=== PATIENT | male | born 1945 | race Caucasian/White ===

== ENCOUNTER 2017-07-24 09:51 | Inpatient (IN) | payer MEDICARE, BC, SELFPAY ==
[2017-07-24] VITALS (14 sets, daily range): BP systolic 100–118; BP diastolic 46–78; PULSE 66–94; RESP 14–28; TEMP 35.7–36.7; O2SAT 83–96; BMI 46.0; BMI 45.7
--- NOTE | 2017-07-24 10:08 | RAD_ITS ---
STUDY: X-RAY CHEST REASON FOR EXAM: Male, 72 years old. Chest pain. TECHNIQUE: Single AP portable view of the chest. COMPARISON: None. FINDINGS: EKG electrodes are seen. Surgical clips are seen in the left upper lobe most likely secondary to prior pulmonary surgery. There is volume loss in the left hemithorax with increased interstitial markings with areas of confluence in the left hemithorax. This may represent chronic changes such as post radiation fibrosis if the patient received prior radiation therapy. Clinical correlation is recommended. There is no demonstrated pleural abnormality. Sternal cerclage wires and vascular clips are present from a prior sternotomy and coronary artery bypass graft procedure (CABG). Normal mediastinum and lazaro. Normal visualized pulmonary arteries. Normal visualized aortic arch and descending thoracic aorta. Normal visualized thoracic spine. Normal visualized ribs, clavicles, and shoulders. There is no demonstrated abnormality of the visualized soft tissue structures of the upper abdomen. RAD/Chest 1 View (Portable) IMPRESSION: Volume loss of the left hemithorax with increased markings most likely chronic in nature. Clinical correlation is recommended. Electronically Signed: Brian Baker MD at 10:48 EST Tel [phone], Service support ,
--- NOTE | 2017-07-24 10:08 | EKG12_ITS ---
Test Reason : SOB Blood Pressure : / mmHG Vent. Rate : 064 BPM Atrial Rate : 064 BPM P-R Int : 146 ms QRS Dur : 106 ms QT Int : 442 ms P-R-T Axes : 115 089 -22 degrees QTc Int : 455 ms Normal sinus rhythm ST & T wave abnormality, consider anterior ischemia Abnormal ECG Confirmed by JOSIAS PARKER, KOLBY ([id number]), newspaper editor managing LOWELL ROWLAND ([id number]) on 07/30/2017 3:30:28 PM Referred By: MITESH/THAD Confirmed By:KOLBY FERRARA MD
--- NOTE | 2017-07-24 10:11 | ED.VISSUMM ---
- ER Visit Summary Date of Service: 07/24/17 Chief Complaint: URI and shortness of breath History of Present Illness: The patient is a 72 M history of pulmonary fibrosis and diastolic heart failure along with a prior triple bypass and mechanical heart valve for which he is anticoagulated on Coumadin. URI symptoms for several days. Today was his primary care physician Dr. Isaac and in the office they noticed he was hypoxic with a pulse ox of 83% on room air. Patient is not on home O2. He states he has had a cough with yellow sputum. Denies any hemoptysis. Denies any chest pain. No history of DVT or PE no risk factors. He denies any worse swelling he does have chronic swelling in his lower extremities. He denies any chest pain. He denies any fever. Physical Examination: Well-appearing older male. Vital signs are stable except his pulse ox is 83% on room air consistent with hypoxia. On oxygen is in the mid 90s. He is in no distress. H EENT exam unremarkable. Neck nontender no JVD. Lungs expiratory wheezing throughout both sides. No rales or rhonchi. Equal and symmetrical. Heart regular rate and rhythm I do not appreciate any murmur at this time. Abdomen soft nontender. Extremities moves all 4. Neurovascularly intact. Trace edema both lower extremities. Calves nontender. No cords. Back exam normal. Neurologically is awake and alert with no focal motor deficits. Test Results: Chest x-ray shows volume loss on the left but no obvious infiltrate. He does have cardiomegaly which is chronic. EKG sinus rhythm rate is 64 with inverted T waves V1 through V4. White count of 10. H&H of 13 and 41. Chemistries unremarkable. Creatinine 1.59. His INR is 2.1 he is on Coumadin. Troponin normal. Emergency Department Course and Treatment: Patient will receive IV Solu-Medrol and aerosol treatments. Along with a workup and chest x-ray. Treatment Plan: Patient was treated with aerosols and Solu-Medrol IV. We took him off oxygen after all his treatments and being in the ER for 2 hours and his pulse ox quickly drops to 87 before he is even attempted to walk. He will be admitted. Disposition: Admission Impression: Acute URI Acute hypoxia with bronchospasm and wheezing. History of pulmonary fibrosis History of CAD with a triple bypass and mechanical heart valve anticoagulated on Coumadin. This note was generated with [employer] dictation software. It may contain incorrect words, spelling, and punctuation that were not noted in review of the chart prior to signing ED Disposition - Plan for ED Patient: Chief Complaint: Shortness of Breath Referrals: Warren Avalos MD [Primary Care Provider] -
--- NOTE | 2017-07-24 10:18 | ED.RN ---
NO OLD EKG
[2017-07-24] MEDS: MethylPREDNISolone 125 MG/2 ML Vial IV (10:32)
[2017-07-24 10:34] LABS: Absolute Lymphocyte Count 1.52 X10^3/ul (0.83-4.51); Absolute Neutrophil Count 7.6 X10^3/uL (2.0-7.7); Basophil# 0.02 X10^3/uL; Basophil% 0.2 % (0-1); Hematocrit 41.9 % (40-54); Hemoglobin 13.7 g/dl (13.0-16.5); Lymphocyte # 1.52 X10^3/ul (4.0); Lymphocyte % 14.9 % (19-41); Mean Corp Hgb Conc 32.7 g/gl (32-36); Mean Corpuscular Hgb 30.9 pg (27.0-32.0); Mean Corpuscular Volume 94.4 fL (80-94); Mean Platelet Vol. 11.7 fl (6.2-12.0); Monocyte% 9.8 % (0-10); Neutrophil # 7.56 X10^3/uL (2.7-7.7); Neutrophil % 73.9 % (47-70); Platelet Count 111 K/mm3 (150-450); RBC Distribution Width CV 14.4 % (11.6-14.6); RBC Distribution Width SD 47.6 fl (35.1-43.9); Red Blood Count 4.44 M/mm3 (4.6-6.2); White Blood Count 10.2 K/mm3 (4.4-11.0)
[2017-07-24 10:37] LABS: POSITIVE COUNT NO; POSITIVE DIFFERENTIAL NO; POSITIVE MORPHOLOGY NO
[2017-07-24] MEDS: Albuterol 2.5 MG/3 ML VIAL.NEB. INHALATION (10:38)
[2017-07-24 10:39] LABS: International Normalized Ratio 2.1; Prothrombin Time (Protime)PT. 22.4 SECONDS (11.7-14.9)
[2017-07-24 10:47] LABS: Anion Gap 7 (5-15); BUN 43 mg/dL (7-18); Calcium,Total 9.2 mg/dL (8.5-10.1); Chloride 105 mmol/L (98-107); Creatinine, Serum 1.59 mg/dL (0.70-1.30); EST Glomerular Filtration Rate 46 mL/min (>60); Est Glom Filt Rate - Afr Amer 55 mL/min (>60); Estimated Creatinine Clearance 39.84 ml/min; Glucose 143 mg/dL (70-110); Potassium 4.1 mmol/L (3.5-5.1); Sodium Level 140 mmol/L (136-145)
[2017-07-24 11:29] LABS: BNP,B-Type NATRIURETIC PEPTIDE 478.2 pg/mL (0-100)
[2017-07-24 14:56] LABS: Allen Test POS; Base Excess 4 mmol/L (-2 to +2); Bicarbonate 29.1 mmol/L (22-26); Blood Gas Specimen Type ART; O2 Delivery Device Nasal Can; PO2 84 mmHG (75-100); SITE L Radial; SO2 96 % (95-99); Time Given 1441; Total Carbon Dioxide 30 mmol/L; pCO2 46.4 mmHg (35-45); pH 7.41 (7.35-7.45)
--- NOTE | 2017-07-24 18:56 | PCM.HP.STD ---
Problem List (1) Asthmatic bronchitis Status: Acute (2) Hypoxemia Status: Acute (3) Morbid obesity Status: Chronic (4) Obstructive sleep apnea Status: Chronic (5) History of mitral valve replacement with mechanical valve Status: Chronic Comment: 1996 (6) Coronary artery disease Status: Chronic (7) History of coronary artery bypass graft Status: Chronic Comment: X 3 vessels....done at the time of the MVR (8) GERD (gastroesophageal reflux disease) Status: Chronic (9) Colon polyp Status: Chronic (10) Diabetes mellitus type 2 in obese Status: Chronic (11) Elevated serum creatinine Status: Acute History of Present Illness Date of Admission: 07/24/17 Chief Complaint: Shortness of breath The patient is a 72 year old M with a past medical history of obstructive sleep apnea, diabetes mellitus type 2, mitral valve replacement with a mechanical valve in 1996, 3 vessel CABG at the time of his mitral valve replacement, GERD, morbid obesity and a colon polyp who presented to the emergency room complaining of shortness of breath which has been getting progressively worse over the past week. He has a cough productive of thick yellow sputum but he denies any fever/chills/nausea/vomiting/myalgias/arthralgias. He did not receive a flu shot this year. He does not wear oxygen at home. He has seen Dr. Marroquin in the past and was told he had scar tissue in his lungs but no COPD and no asthma. He is not on metered-dose inhalers or aerosolized bronchodilators at home. Vital signs at presentation to the emergency room were temp 96.3, pulse rate 94, blood pressure 114/56, respiratory rate 28 and he was 83% saturated on room air. Pulse ox on 2 L nasal cannula was 94-95%. White blood cell count was 10.2 with 74% neutrophils. Hemoglobin was normal at 13.7 and the platelet count was low at 111,000. We have no previous labs on this gentleman. INR is therapeutic at 2.1. An ABG done on a 2 L nasal cannula showed pH of 7.41, PCO2 of 46 and a PO2 of 84. Electrolytes were within normal limits and the serum bicarb was 28. BUN is 43 with a creatinine of 1.59 and once again we have no baseline. He denies any history of renal disease. His random blood sugar was 143. Chest x-ray showed volume loss in the left hemithorax with increased markings which are likely chronic and the patient does give a history of scarring in his lungs. He was given 125 mg of Solu-Medrol in the emergency room and no antibiotic. He is being admitted to the hospital with acute asthmatic bronchitis with hypoxemia. Past Medical History Past Medical History (Chronic Problems): Chronic Problems Morbid obesity (Chronic) Obstructive sleep apnea (Chronic) History of mitral valve replacement with mechanical valve (Chronic) 1996 Coronary artery disease (Chronic) History of coronary artery bypass graft (Chronic) X 3 vessels....done at the time of the MVR GERD (gastroesophageal reflux disease) (Chronic) Colon polyp (Chronic) Diabetes mellitus type 2 in obese (Chronic) Allergies niacin Allergy (Verified 07/24/17 10:56) Unknown Home Medications: Ambulatory Orders Medication Instructions Recorded Acetaminophen [Tylenol] 650 mg PO Q6H PRN PRN 07/24/17 Aspirin [Aspirin, Baby] 81 mg PO DAILY 07/24/17 Atorvastatin Calcium [Lipitor] 40 mg PO QHS 07/24/17 Ezetimibe [Zetia] 10 mg PO DAILY 07/24/17 Furosemide [Lasix] 40 mg PO DAILY 07/24/17 Hydrochlorothiazide [Hctz] 25 mg PO DAILY 07/24/17 Lansoprazole [Prevacid] 15 mg PO DAILY 07/24/17 Lisinopril [Zestril] 40 mg PO DAILY 07/24/17 Metoprolol(XL)Succ [Toprol Xl 100 mg PO QHS 07/24/17 (Beta Shorty)] [place]-3 Fatty Acids [[place]-3] 1,000 mg PO DAILY 07/24/17 Pioglitazone [Actos] 15 mg PO DAILY 07/24/17 Sotalol HCl [Betapace AF (Beta 80 mg PO BID 07/24/17 Shorty)] Warfarin [Coumadin ([facility])] 5 mg PO SUTUWETHFRSA 07/24/17 Warfarin [Coumadin ([facility])] 7.5 mg PO MO 07/24/17 Surgical History: coronary bypass surgery, - - Mechanical mitral valve replacement Psychiatric History: No pertinent psych hx Lives: Spouse/ Significant Other Smoking Status: Former smoker - He quit smoking 40 years ago. Tobacco Use: Non-smoker Alcohol: None Drugs: None - *Family History Maternal History Items: Diabetes, Heart Disease Paternal History Items: COPD Sibling History Items: - - He has 1 brother who was at 47 years of age with a myocardial infarction. Another brother who is currently alive has coronary artery disease and has had stents. Review of Systems Constitutional: Denies: Anorexia, Chills, Fever, Weakness Eyes: Denies: Blurred vision HEENT: Denies: Head Aches, Sinus Congestion, Sinus Drainage, Sore Throat Cardiovascular: Reports: Edema - Of the ankles that goes away overnight. Denies: Chest Pain, Light Headedness, Orthopnea, Palpitations Respiratory: Reports: Cough, Shortness of Breath, Shortness of breath at rest, Shortness of breath upon exertion, Sputum production. Denies: Hemoptysis, Pleuritic Pain Gastrointestinal: Denies: Abdominal Pain, Nausea, Vomiting Genitourinary: Denies: Dysuria Musculoskeletal: Denies: Joint Pain, Joint Tenderness Skin: Denies: Jaundice, Rash, Wounds Neurological: Denies: Numbness, Tingling, Focal weakness Psychiatric: Denies: Anxiety, Depression, Homicidal Ideations, Suicidal Ideations Endocrine: Denies: Hx of Thyroiditis Hematologic/ Lymphatic: Denies: Hx of blood clot VTE Information - Inpt Only VTE Present on Admission: No VTE Mechan Device Prophylaxis: None VTE Pharm Prophylaxis ordered?: No Reason prophylaxis not ordered:: Treatment Not Indicated - He is therapeutic on warfarin Patient Problems: Active and Suspected Problems Asthmatic bronchitis (Acute) Hypoxemia (Acute) Elevated serum creatinine (Acute) - Physical Exam General: Alert, Oriented x3, Cooperative, - - He is tachypneic even at rest HEENT: Atraumatic, PERRLA, EOMI, Normocephalic Oral: No Gingival or Mucosal Lesions/ Ulcerations, Dry Mucosa Neck: Supple, Negative Carotid Bruits, Trachea Midline Lungs: No rales, Diminished, Tachypneic, Wheezes - Rare expiratory wheeze., - - He is tachypneic with mild conversational dyspnea and no accessory muscle use. Cardiovascular: Regular rate, Regular Rhythm, Normal S1, Normal S2, No murmurs, No rub noted, No Gallop Abdomen: Bowel Sounds Present, Soft, Non Tender, Non-Distended, Obese Extremities: No clubbing, No cyanosis, No edema Skin: No rashes, No breakdown Musculoskeletal: No Muscle Wasting Neurological: Cranial nerves II-XII grossly intact, Neuro grossly intact Psych/Mental Status: Normal Affect, Appropriate Vital Signs Temp Pulse Resp BP Pulse Ox 97.5 F L 71 18 105/58 L 94 07/24/17 17:00 07/24/17 17:00 07/24/17 17:00 07/24/17 17:00 07/24/17 17:00 Oxygen Flow Rate 2 Oxygen Delivery Method Nasal Cannula Weight: 296 lb 3.2 oz Body Mass Index (BMI) 45.7 Intake and Output for Last 24 Hours 07/22/17 07/23/17 07/24/17 23:59 23:59 23:59 Intake Total 360 / 360 Balance 360 / 360 Laboratory Tests Past 24 Hrs 07/24/17 14:53 Specimen Type ART Sample Site L Radial pH 7.41 Bicarbonate Actual 29.1 H POC Total CO2 30 Base Excess 4 H O2 Saturation 96 ABG pCO2 46.4 H ABG pO2 84 Sunny Test POS O2 Delivery Device Nasal Can Liter Flow 2.0 Blood Gas Notified Whom HOSP MD Blood Gas Notified Time 1441 Assessment/Plan Active and Suspected Problems Asthmatic bronchitis (Acute) Hypoxemia (Acute) Elevated serum creatinine (Acute) Impressions 1. Acute hypoxic respiratory insufficiency 2. suspect a viral URI 3. morbid obesity 4. Diabetes mellitus type 2 5. Status post mechanical mitral valve replacement in 1996 with a 3 vessel CABG at the same time 6. Coronary artery disease 7. Hypertension 8. CHRISTOPHER-uses CPAP religiously 9. History of scarring in his lungs. 10. Elevated creatinine-we have no baseline labs to know if this is acute or chronic 11. History of a colon polyp-benign 12. GERD 13. Hyperlipidemia Doxycycline 100 mg p.o. twice daily Respiratory panel, urine for Legionella and streptococcal antigens, sputum culture and blood culture Mucinex 1200 mg p.o. twice daily DuoNeb every 4 hours while awake and albuterol every 2 hours as needed wheezing Prednisone 40 mg p.o. daily Continue his home medications Monitor PT/INR daily for a few days. INR today is only 2.1 and this is borderline Continue Actos Monitor Accu-Cheks before meals and at bedtime with sliding scale insulin coverage since he will be on high-dose steroids Check a hemoglobin A1c Recheck lab in the a.m. Ambulatory pulse ox prior to discharge Code Visit Inpatient E&M: 85648 Init Hosp L2
[2017-07-24] MEDS: Sotalol Hydrochloride 80 MG Tablet PO (22:57)
[2017-07-24] MEDS: Atorvastatin Calcium 40 MG Tablet PO (22:57)
[2017-07-25] VITALS (16 sets, daily range): BP systolic 108–132; BP diastolic 48–66; PULSE 54–83; RESP 18–20; TEMP 36.3–36.8; O2SAT 95–98
[2017-07-25 05:41] LABS: Hematocrit 40.5 % (40-54); Hemoglobin 13.2 g/dl (13.0-16.5); Mean Corp Hgb Conc 32.6 g/gl (32-36); Mean Corpuscular Hgb 30.6 pg (27.0-32.0); Mean Platelet Vol. 11.8 fl (6.2-12.0); Platelet Count 119 K/mm3 (150-450); RBC Distribution Width SD 45.9 fl (35.1-43.9); Red Blood Count 4.31 M/mm3 (4.6-6.2); White Blood Count 7.5 K/mm3 (4.4-11.0)
[2017-07-25 05:53] LABS: Scan Indicated on CBC? Y/N NO
[2017-07-25 06:06] LABS: ALB/GLOB Ratio 0.9 RATIO (0.9-2.4); AST(SGOT) 17 U/L (15-37); Alanine Aminotransfer ALT/SGPT 23 U/L (12-78); Albumin, Serum 3.4 g/dL (3.4-5.0); Alkaline Phosphatase 44 U/L (45-117); Anion Gap 8 (5-15); BUN 42 mg/dL (7-18); BUN/Creat Ratio 32.3 RATIO (10-20); Calcium,Total 9.2 mg/dL (8.5-10.1); Chloride 103 mmol/L (98-107); Cholesterol 101 mg/dL (200); EST Glomerular Filtration Rate 58 mL/min (>60); Est Glom Filt Rate - Afr Amer 70 mL/min (>60); Estimated Creatinine Clearance 48.73 ml/min; Globulin 3.8 g/dL (2.2-4.2); Glucose 150 mg/dL (70-110); High Density Lipoprotein 32 mg/dL; Magnesium 2.2 mg/dL (1.8-2.4); Phosphorus 3.7 mg/dL (2.5-4.9); Potassium 4.1 mmol/L (3.5-5.1); Protein, Total 7.2 g/dL (6.4-8.2); Sodium Level 139 mmol/L (136-145); Triglycerides 140 mg/dL; Very Low Density Lipoprotein 28 mg/dL (5-40)
[2017-07-25 06:46] LABS: Bedside Glucose 139 mg/dL (70-110)
[2017-07-25] MEDS: Aspirin 81 MG TAB.CHEW PO (07:43)
[2017-07-25 08:36] LABS: Hemoglobin A1c 7.1 % (4.2-6.3)
[2017-07-25] MEDS: Furosemide 40 MG Tablet PO (09:23)
[2017-07-25] MEDS: guaiFENesin 1,200 MG Tablet 1200 MG PO ×2 (09:23→21:33)
[2017-07-25] MEDS: Pantoprazole Sodium 20 MG Tablet PO (09:23)
[2017-07-25] MEDS: Ezetimibe 10 MG Tablet PO (09:23)
[2017-07-25] MEDS: Lisinopril 40 MG Tablet PO (09:23)
[2017-07-25] MEDS: Sotalol Hydrochloride 80 MG Tablet PO ×2 (09:24→21:33)
[2017-07-25] MEDS: Pioglitazone Hydrochloride 15 MG Tablet PO (09:26)
[2017-07-25] MEDS: Ipratropium/Albuterol Sulfate 3 ML AMPUL.NEB INHALATION ×4 (10:22→22:21)
[2017-07-25] MEDS: Doxycycline 100 MG CAPSULE PO ×2 (10:33→21:32)
[2017-07-25 11:46] LABS: Bedside Glucose 169 mg/dL (70-110)
--- NOTE | 2017-07-25 12:06 | CASEMGMT ---
Face to Face with patient for initial transition planning/care coordination assessment. CANDIE PITTMAN introduced self and role at [facility], pt voices understanding and consents to assessment at this time. Pt sitting up in chair in no distress at this time. Pt A/O x4 at this time and answers all questions appropriately at this time. Care providers, pharmacy, and demographics verified/updated at this time. See attached link. Pt voices no further concerns/needs at this time. Advised pt to ask for CM if any further questions/concerns/needs arise, voices understanding. CM to follow for any further discharge planning/needs. PLAN[place] CANDIE PITTMAN
--- NOTE | 2017-07-25 12:43 | CHAPLAIN ---
Type of Pastoral Visit _x__ Initial Visit ___ Follow-up Visit ___ On-call Visit ___ General Patient Visit ___ Spiritual Assessment ___ Family Conference ___ Bereavement ___ Rapid Response ___ Code Blue ___ Other (describe below) Pastoral Care Referral From _x__ Patient ___ Family ___ Nurse ___ Physician ___ Pipe Organ Mechanic ___ Assemblyman Or Woman ___ Other (describe below) Sacrament/Intervention _x__ Active listening ___ Anointing ___ Religion ___ Bereavement ___ Communion ___ Venus exploration ___ ___ Life review ___ Prayer ___ Reconciliation ___ Sacrament of Sick ___ Supportive presence ___ Wedding ___ Other (describe below) Pastoral Comments
--- NOTE | 2017-07-25 12:52 | PCM.PROGNOTE ---
Subjective: He has been afebrile since admission and vital signs are stable. He is 90% saturated on a 2 L nasal cannula today. 72-year-old male with obstructive sleep apnea who presented to the emergency room on 07/24 with acute asthmatic bronchitis. Respiratory panel is positive for influenza B. Sputum Gram stain has 2+ white blood cells with 3+ gram-positive diplococci. Legionella and streptococcal antigens were negative. White blood cell count today is 7.5. Hemoglobin is within normal limits and the platelets are 119,000, up from 111,000 at admission. BUN is 42 today and the creatinine is 1.3, down from 1.59 at admission. LFTs are within normal limits. Total cholesterol is 101 with an LDL of 41 and an HDL of 32. Hemoglobin A1c is 7.1%. Magnesium and phosphorus are within normal limits. - Physical Exam General: Alert, Oriented x3, Cooperative HEENT: Atraumatic Lungs: No rales, Diminished, Wheezes, - - Better air exchange today. Cardiovascular: Regular rate, Regular Rhythm, Normal S1, Normal S2, No Gallop Abdomen: Bowel Sounds Present, Soft, Non Tender, Non-Distended Extremities: No clubbing, No cyanosis, No edema, No Calf Tenderness Skin: No rashes, No breakdown Neurological: Cranial nerves II-XII grossly intact, Neuro grossly intact Psych/Mental Status: Appropriate Vital Signs Temp Pulse Resp BP Pulse Ox 97.6 F L 69 20 H 116/66 98 07/25/17 09:15 07/25/17 11:00 07/25/17 10:35 07/25/17 09:15 07/25/17 09:15 Oxygen Flow Rate 2 Oxygen Delivery Method Nasal Cannula Weight: 296 lb 3.2 oz Body Mass Index (BMI) 45.7 Intake and Output for Last 24 Hours 07/23/17 07/24/17 07/25/17 23:59 23:59 23:59 Intake Total 480 / 480 280 / 280 Balance 480 / 480 280 / 280 Microbiology Past 72 Hours 07/24/17 14:30 Respiratory Panel (PCR) - Final Mucosa - Nasopharyngeal Influenzae B 07/24/17 18:55 Gram Stain - Final Sputum, Expectorated/Coughed 07/24/17 18:45 Streptococcus pneumoniae Antigen (M - Final Urine, Clean Catch 07/24/17 18:45 Legionella Antigen - Final Urine, Clean Catch Laboratory Tests Past 24 Hrs 07/24/17 07/25/17 07/25/17 14:53 05:05 05:05 WBC 7.5 RBC 4.31 L Hgb 13.2 Hct 40.5 MCV 94.0 MCH 30.6 MCHC 32.6 RDW 14.0 RDW Differential 45.9 H Plt Count 119 L MPV 11.8 Specimen Type ART Sample Site L Radial pH 7.41 Bicarbonate Actual 29.1 H POC Total CO2 30 Base Excess 4 H O2 Saturation 96 ABG pCO2 46.4 H ABG pO2 84 Sunny Test POS O2 Delivery Device Nasal Can Liter Flow 2.0 Blood Gas Notified [facility]om [facility] Blood Gas Notified Time 1441 Sodium 139 Potassium 4.1 Chloride 103 Carbon Dioxide 28.0 Anion Gap 8 BUN 42 H Creatinine 1.30 Estim Creat Clear Calc 48.73 Est GFR (MDRD) Af Amer 70 Est GFR (MDRD) Non-Af 58 L BUN/Creatinine Ratio 32.3 H Glucose 150 H Hemoglobin A1c Calcium 9.2 Phosphorus 3.7 Magnesium 2.2 Total Bilirubin 0.50 AST 17 ALT 23 Alkaline Phosphatase 44 L Total Protein 7.2 Albumin 3.4 Globulin 3.8 Albumin/Globulin Ratio 0.9 Triglycerides 140 Cholesterol 101 LDL Cholesterol 41 VLDL Cholesterol 28 HDL Cholesterol 32 L 07/25/17 05:05 WBC RBC Hgb Hct MCV MCH MCHC RDW RDW Differential Plt Count MPV Specimen Type Sample Site pH Bicarbonate Actual POC Total CO2 Base Excess O2 Saturation ABG pCO2 ABG pO2 Sunny Test O2 Delivery Device Liter Flow Blood Gas Notified Whom Blood Gas Notified Time Sodium Potassium Chloride Carbon Dioxide Anion Gap BUN Creatinine Estim Creat Clear Calc Est GFR (MDRD) Af Amer Est GFR (MDRD) Non-Af BUN/Creatinine Ratio Glucose Hemoglobin A1c 7.1 H Calcium Phosphorus Magnesium Total Bilirubin AST ALT Alkaline Phosphatase Total Protein Albumin Globulin Albumin/Globulin Ratio Triglycerides Cholesterol LDL Cholesterol VLDL Cholesterol HDL Cholesterol POC Glucose 07/25/17 07/25/17 11:37 06:41 POC Glucose 169 H 139 H Assessment/Plan Impressions 1. Acute hypoxic respiratory insufficiency 2. suspect a viral URI 3. morbid obesity 4. Diabetes mellitus type 2 5. Status post mechanical mitral valve replacement in 1996 with a 3 vessel CABG at the same time 6. Coronary artery disease 7. Hypertension 8. CHRISTOPHER-uses CPAP religiously 9. History of scarring in his lungs. 10. Elevated creatinine-we have no baseline labs to know if this is acute or chronic 11. History of a colon polyp-benign 12. GERD 13. Hyperlipidemia Doxycycline 100 mg p.o. twice daily Respiratory panel, urine for Legionella and streptococcal antigens, sputum culture and blood culture Mucinex 1200 mg p.o. twice daily DuoNeb every 4 hours while awake and albuterol every 2 hours as needed wheezing Prednisone 40 mg p.o. daily Continue his home medications Monitor PT/INR daily for a few days. INR today is only 2.1 and this is borderline Continue Actos Monitor Accu-Cheks before meals and at bedtime with sliding scale insulin coverage since he will be on high-dose steroids Check a hemoglobin A1c Recheck lab in the a.m. Ambulatory pulse ox prior to discharge Code Visit Inpatient E&M: 28909 Subs Hosp L2
[2017-07-25] MEDS: Oseltamivir Phosphate 30 MG Capsule PO ×2 (14:09→21:33)
[2017-07-25 17:20] LABS: Bedside Glucose 146 mg/dL (70-110)
[2017-07-25] MEDS: Metoprolol(XL)Succ 100 MG Tablet PO (21:32)
[2017-07-25] MEDS: Atorvastatin Calcium 40 MG Tablet PO (21:33)
[2017-07-25 22:22] LABS: Bedside Glucose 143 mg/dL (70-110)
[2017-07-26] VITALS (10 sets, daily range): BP systolic 103–123; BP diastolic 59–74; PULSE 63–79; RESP 16–18; TEMP 36.5–37.1; O2SAT 85–97
[2017-07-26 06:41] LABS: Bedside Glucose 72 mg/dL (70-110)
[2017-07-26] MEDS: Ipratropium/Albuterol Sulfate 3 ML AMPUL.NEB INHALATION ×3 (06:54→15:03)
[2017-07-26] MEDS: Aspirin 81 MG TAB.CHEW PO (07:59)
[2017-07-26] MEDS: Pantoprazole Sodium 20 MG Tablet PO (09:26)
[2017-07-26] MEDS: guaiFENesin 1,200 MG Tablet 1200 MG PO (09:26)
[2017-07-26] MEDS: Ezetimibe 10 MG Tablet PO (09:26)
[2017-07-26] MEDS: Lisinopril 40 MG Tablet PO (09:26)
[2017-07-26] MEDS: Oseltamivir Phosphate 30 MG Capsule PO (09:27)
[2017-07-26] MEDS: Sotalol Hydrochloride 80 MG Tablet PO (09:27)
[2017-07-26] MEDS: Furosemide 40 MG Tablet PO (09:27)
[2017-07-26] MEDS: Doxycycline 100 MG CAPSULE PO (09:27)
[2017-07-26] MEDS: Pioglitazone Hydrochloride 15 MG Tablet PO (09:27)
[2017-07-26 11:26] LABS: Bedside Glucose 153 mg/dL (70-110)
--- NOTE | 2017-07-26 13:26 | PCM.DC ---
- Discharge Diagnoses Current Active Problems: Current Active and Chronic Problems Asthmatic bronchitis (Acute) Hypoxemia (Acute) Morbid obesity (Chronic) Obstructive sleep apnea (Chronic) History of mitral valve replacement with mechanical valve (Chronic) 1996 Coronary artery disease (Chronic) History of coronary artery bypass graft (Chronic) X 3 vessels....done at the time of the MVR GERD (gastroesophageal reflux disease) (Chronic) Colon polyp (Chronic) Diabetes mellitus type 2 in obese (Chronic) Elevated serum creatinine (Acute) You will use the following diet at home:: Calorie/Carbohydrate Controlled (specify 1200, 1400, etc), Cardiac Your food should be the consistency of: Regular Your liquids should be the consistency of: Regular/Thin Discharge Activity: - - Avoid exposure to any strong smells such as bleach, cleaning products, strong colognes or perfumes, paint fumes and smoke of any kind. Avoid sudden exposure to cold air because this can cause bronchospasm. You may want to cover your mouth when you go outside in the winter. Avoid exposure to anyone who is sick with a cough or sore throat. Call your doctor if you observe: Fever of 101 or Higher, - - Worsening SOB, chest pain, rash Instructions: Influenza Additional Instructions: The oxygen dropped low when you were walking and so we are sending you home with oxygen. Wear it if feel short of breath and always when you are walking or exerting yourself in any way. I am also sending you home with a nebulizer and a RX for the medication to use in the nebulizer. This medication helps to dilate the airways and helps with wheezing. The flu causes a lot of inflammation in the airways and then the airways spasm and restrict air flow and then you wheeze. We are sending you with prednisone. Prednisone is a poweful anti-inflammtory and it will decrease the inflammation in the lungs. They also will cause the blood sugars to increase but this will go away as the steroids are tapered. Pending Tests on Discharge: none Allergies/Adverse Reactions: Allergies niacin Allergy (Verified 07/24/17 10:56) Unknown Medications to take at Discharge Acetaminophen [Tylenol] 650 mg PO Q6H PRN PRN 07/24/17 Aspirin [Aspirin, Baby] 81 mg PO DAILY 07/24/17 Atorvastatin Calcium [Lipitor] 40 mg PO QHS 07/24/17 Ezetimibe [Zetia] 10 mg PO DAILY 07/24/17 Furosemide [Lasix] 40 mg PO DAILY 07/24/17 Hydrochlorothiazide [Hctz] 25 mg PO DAILY 07/24/17 Lansoprazole [Prevacid] 15 mg PO DAILY 07/24/17 Lisinopril [Zestril] 40 mg PO DAILY 07/24/17 Metoprolol(XL)Succ [Toprol Xl (Beta Shorty)] 100 mg PO QHS 07/24/17 [place]-3 Fatty Acids [[place]-3] 1,000 mg PO DAILY 07/24/17 Pioglitazone [Actos] 15 mg PO DAILY 07/24/17 Sotalol HCl [Betapace AF (Beta Shorty)] 80 mg PO BID 07/24/17 Warfarin [Coumadin] 5 mg PO SUTUWETHFRSA 07/24/17 Warfarin [Coumadin] 7.5 mg PO MO 07/24/17 Albuterol Aerosols [Ventolin Aerosols] 2.5 mg INHALATION UD #120 vial.neb. 07/26/17 Guaifenesin [Mucinex] 1,200 mg PO BID #20 tab 07/26/17 Nebulizer [Aeroneb Go Nebulizer] 1 ea MC 4X/DAY #1 ea 07/26/17 Oseltamivir Phosphate [Tamiflu] 30 mg PO BID #7 cap 07/26/17 Prednisone 10 mg PO UD #30 tab 07/26/17 The following prescriptions were given: Albuterol Aerosols [Ventolin Aerosols] 2.5 mg INHALATION UD #120 vial.neb. Prednisone 10 mg PO UD #30 tab Guaifenesin [Mucinex] 1,200 mg PO BID #20 tab Oseltamivir Phosphate [Tamiflu] 30 mg PO BID #7 cap Nebulizer [Aeroneb Go Nebulizer] 1 ea MC 4X/DAY #1 ea Primary Care Physician: Warren Avalos MD [Primary Care Provider] - Please follow up with your Primary Care Physician in: 7-10 days Proposed Discharge Date: 07/26/17
--- NOTE | 2017-07-26 13:32 | CASEMGMT ---
Per Marjorie SCHREIBER, pt qualifies for home oxygen at this time. Pt states no preference for DME. Referral faxed to [facility] at this time for home oxygen and nebulizer. Call to Eli at [facility] and she is aware of referral at this time. Juno SCHREIBER CM
--- NOTE | 2017-07-26 13:35 | DCINST_ITS ---
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 Avoid sudden exposure to cold air because this can cause bronchospasm. You may want to cover your mouth when you go outside in the winter. Avoid exposure to anyone who is sick with a cough or sore throat. Call your doctor if you observe: Fever of 101 or Higher, - - Worsening SOB, chest pain, rash Instructions: Influenza Additional Instructions: The oxygen dropped low when you were walking and so we are sending you home with oxygen. Wear it if feel short of breath and always when you are walking or exerting yourself in any way. I am also sending you home with a nebulizer and a RX for the medication to use in the nebulizer. This medication helps to dilate the airways and helps with wheezing. The flu causes a lot of inflammation in the airways and then the airways spasm and restrict air flow and then you wheeze. We are sending you with prednisone. Prednisone is a poweful anti-inflammtory and it will decrease the inflammation in the lungs. They also will cause the blood sugars to increase but this will go away as the steroids are tapered. Pending Tests on Discharge: none Allergies/Adverse Reactions: Allergies niacin Allergy (Verified 07/24/17 10:56) Unknown Medications to take at Discharge Acetaminophen [Tylenol] 650 mg PO Q6H PRN PRN 07/24/17 Aspirin [Aspirin, Baby] 81 mg PO DAILY 07/24/17 Atorvastatin Calcium [Lipitor] 40 mg PO QHS 07/24/17 Ezetimibe [Zetia] 10 mg PO DAILY 07/24/17 Furosemide [Lasix] 40 mg PO DAILY 07/24/17 Hydrochlorothiazide [Hctz] 25 mg PO DAILY 07/24/17 Lansoprazole [Prevacid] 15 mg PO DAILY 07/24/17 Lisinopril [Zestril] 40 mg PO DAILY 07/24/17 Metoprolol(XL)Succ [Toprol Xl (Beta Shorty)] 100 mg PO QHS 07/24/17 [place]-3 Fatty Acids [[place]-3] 1,000 mg PO DAILY 07/24/17 Pioglitazone [Actos] 15 mg PO DAILY 07/24/17 Sotalol HCl [Betapace AF (Beta Shorty)] 80 mg PO BID 07/24/17 Warfarin [Coumadin] 5 mg PO SUTUWETHFRSA 07/24/17 Warfarin [Coumadin] 7.5 mg PO MO 07/24/17 Albuterol Aerosols [Ventolin Aerosols] 2.5 mg INHALATION UD #120 vial.neb. 07/26 Guaifenesin [Mucinex] 1,200 mg PO BID #20 tab 07/26/17 Nebulizer [Aeroneb Go Nebulizer] 1 ea MC 4X/DAY #1 ea 07/26/17 Oseltamivir Phosphate [Tamiflu] 30 mg PO BID #7 cap 07/26/17 Prednisone 10 mg PO UD #30 tab 07/26/17 The following prescriptions were given: Albuterol Aerosols [Ventolin Aerosols] 2.5 mg INHALATION UD #120 vial.neb. Prednisone 10 mg PO UD #30 tab Guaifenesin [Mucinex] 1,200 mg PO BID #20 tab Oseltamivir Phosphate [Tamiflu] 30 mg PO BID #7 cap Nebulizer [Aeroneb Go Nebulizer] 1 ea MC 4X/DAY #1 ea Primary Care Physician: Warren Avalos MD [Primary Care Provider] - Please follow up with your Primary Care Physician in: 7-10 days Proposed Discharge Date: 07/26/17
--- NOTE | 2017-07-26 13:37 | PCM.DC.SUM ---
Discharge Date and Diagnosis - Problem List Patient Problems: Active and Suspected Problems Influenza B (Acute) Asthmatic bronchitis (Acute) Hypoxemia (Acute) Elevated serum creatinine (Acute) Date of Admission: 07/24/17 Date of Discharge: 07/26/17 - Primary Discharge Diagnosis Active and Suspected Problems Influenza B (Acute) Asthmatic bronchitis (Acute) Hypoxemia (Acute) Elevated serum creatinine (Acute) - resolved with hydration Mild thrombocytopenia-resolved - Secondary Discharge Diagnosis Chronic Problems Morbid obesity (Chronic) Obstructive sleep apnea (Chronic) History of mitral valve replacement with mechanical valve (Chronic) 1996 Coronary artery disease (Chronic) History of coronary artery bypass graft (Chronic) X 3 vessels....done at the time of the MVR GERD (gastroesophageal reflux disease) (Chronic) Colon polyp (Chronic) Diabetes mellitus type 2 in obese (Chronic) Hospital Course and Treatment Imaging Results: Clinical Impression(s) from Imaging Studies Chest X-Ray 07/24/17 10:08 IMPRESSION: Volume loss of the left hemithorax with increased markings most likely chronic in nature. Clinical correlation is recommended. Electronically Signed: Brian Baker MD at 10:48 EST Tel [phone], Service support , Microbiology 07/24/17 18:55 Sputum, Expectorated/Coughed Gram Stain - Final 07/24/17 18:55 Sputum, Expectorated/Coughed Respiratory Culture - Preliminary Appears to be normal respiratory feroz. Further studies to follow. 07/24/17 14:30 Mucosa - Nasopharyngeal Respiratory Panel (PCR) - Final Influenzae B 07/24/17 18:45 Urine, Clean Catch Streptococcus pneumoniae Antigen (M - Final 07/24/17 18:45 Urine, Clean Catch Legionella Antigen - Final Laboratory Results - last 24 hr 07/25/17 07/25/17 07/26/17 17:07 21:30 06:37 POC Glucose 146 H 143 H 72 07/26/17 11:17 POC Glucose 153 H none Operations: None Procedures: None Summary of Care Provided: The patient is a 72 year old M with a past medical history of obstructive sleep apnea, diabetes mellitus type 2, mitral valve replacement with a mechanical valve in 1996, 3 vessel CABG at the time of his mitral valve replacement, GERD, morbid obesity and a colon polyp who presented to the emergency room complaining of shortness of breath which has been getting progressively worse over the past week. He had a cough productive of thick yellow sputum but he denied any fever/chills/nausea/vomiting/myalgias/arthralgias. He did not receive a flu shot this year. He does not wear oxygen at home. He has seen Dr. Granger in the past and was told he had scar tissue in his lungs but no COPD and no asthma. He is not on metered-dose inhalers or aerosolized bronchodilators at home. Vital signs at presentation to the emergency room were temp 96.3, pulse rate 94, blood pressure 114/56, respiratory rate 28 and he was 83% saturated on room air. Pulse ox on 2 L nasal cannula was 94-95%. White blood cell count was 10.2 with 74% neutrophils. Hemoglobin was normal at 13.7 and the platelet count was low at 111,000. We have no previous labs on this gentleman. INR was therapeutic at 2.1. An ABG done on a 2 L nasal cannula showed pH of 7.41, PCO2 of 46 and a PO2 of 84. Electrolytes were within normal limits and the serum bicarb was 28. BUN was 43 with a creatinine of 1.59 and once again we have no baseline. He denied any history of renal disease. His random blood sugar was 143. Chest x-ray showed volume loss in the left hemithorax with increased markings which are likely chronic and the patient does give a history of scarring in his lungs. He was given 125 mg of Solu-Medrol in the emergency room and no antibiotic. He was admitted to the hospital with acute asthmatic bronchitis with hypoxemia. He was started on steroids, Mucinex and aerosolized bronchodilators. Supplemental oxygen was supplied. The respiratory panel was positive for influenza B and he was started on Tamiflu. Sputum culture appeared to be normal respiratory feroz. The streptococcal and Legionella antigens in the urine were negative. On 07/26 he was afebrile and the VS were stable. Auscultation of his lungs revealed no rales and he had minimal expiratory wheezing at rest. Pulse ox on room air was 92%. When he ambulated on room air his pulse ox was 85% and he became dyspneic with increased wheezing and cough. He was ambulated on a 2 L nasal cannula and the pulse ox was 92%. Home oxygen was arranged for him and he is to wear it with any exertion at 2 L/min. He will continue to wear CPAP at night and his pulse ox on CPAP is 94-95% with room air. He was given a prescription for Tamiflu to complete 10 doses. He was discharged on prednisone in tapering doses. He will follow-up with Dr. Avalos in 7-10 days. This note was generated with [employer] dictation software. It may contain incorrect words, spelling, and punctuation that were not noted in checking the note before signing. Discharge Activity: - - Avoid exposure to any strong smells such as bleach, cleaning products, strong colognes or perfumes, paint fumes and smoke of any kind. Avoid sudden exposure to cold air because this can cause bronchospasm. You may want to cover your mouth when you go outside in the winter. Avoid exposure to anyone who is sick with a cough or sore throat. Call your doctor if you observe: Fever of 101 or Higher, - - Worsening SOB, chest pain, rash Home Medications: Medications to take at Discharge Acetaminophen [Tylenol] 650 mg PO Q6H PRN PRN 07/24/17 Aspirin [Aspirin, Baby] 81 mg PO DAILY 07/24/17 Atorvastatin Calcium [Lipitor] 40 mg PO QHS 07/24/17 Ezetimibe [Zetia] 10 mg PO DAILY 07/24/17 Furosemide [Lasix] 40 mg PO DAILY 07/24/17 Hydrochlorothiazide [Hctz] 25 mg PO DAILY 07/24/17 Lansoprazole [Prevacid] 15 mg PO DAILY 07/24/17 Lisinopril [Zestril] 40 mg PO DAILY 07/24/17 Metoprolol(XL)Succ [Toprol Xl (Beta Shorty)] 100 mg PO QHS 07/24/17 [place]-3 Fatty Acids [[place]-3] 1,000 mg PO DAILY 07/24/17 Pioglitazone [Actos] 15 mg PO DAILY 07/24/17 Sotalol HCl [Betapace AF (Beta Shorty)] 80 mg PO BID 07/24/17 Warfarin [Coumadin] 5 mg PO SUTUWETHFRSA 07/24/17 Warfarin [Coumadin] 7.5 mg PO MO 07/24/17 Albuterol Aerosols [Ventolin Aerosols] 2.5 mg INHALATION UD #120 vial.neb. 07/26/17 Guaifenesin [Mucinex] 1,200 mg PO BID #20 tab 07/26/17 Nebulizer [Aeroneb Go Nebulizer] 1 ea MC 4X/DAY #1 ea 07/26/17 Oseltamivir Phosphate [Tamiflu] 30 mg PO BID #7 cap 07/26/17 Prednisone 10 mg PO UD #30 tab 07/26/17 Following Prescrptions Were Given to Patient: Albuterol Aerosols [Ventolin Aerosols] 2.5 mg INHALATION UD #120 vial.neb. Prednisone 10 mg PO UD #30 tab Guaifenesin [Mucinex] 1,200 mg PO BID #20 tab Oseltamivir Phosphate [Tamiflu] 30 mg PO BID #7 cap Nebulizer [Aeroneb Go Nebulizer] 1 ea MC 4X/DAY #1 ea Primary Care Physician: Warren Avalos MD [Primary Care Provider] - Please follow up with your Primary Care Physician in: 7-10 days Patient Instructions: Influenza Disposition: Home Minutes spent on discharge:: 35 Patient Condition:: Stable Meaningful Use Info Meaningful Use Diagnoses (Choose all that apply): None applicable
--- NOTE | 2017-07-26 13:48 | DS.PCM_ITS ---
Discharge Date and Diagnosis - Problem List Patient Problems: Active and Suspected Problems Influenza B (Acute) Asthmatic bronchitis (Acute) Hypoxemia (Acute) Elevated serum creatinine (Acute) Date of Admission: 07/24/17 Date of Discharge: 07/26/17 - Primary Discharge Diagnosis Active and Suspected Problems Influenza B (Acute) Asthmatic bronchitis (Acute) Hypoxemia (Acute) Elevated serum creatinine (Acute) - resolved with hydration Mild thrombocytopenia-resolved - Secondary Discharge Diagnosis Chronic Problems Morbid obesity (Chronic) Obstructive sleep apnea (Chronic) History of mitral valve replacement with mechanical valve (Chronic) 1996 Coronary artery disease (Chronic) History of coronary artery bypass graft (Chronic) X 3 vessels....done at the time of the MVR GERD (gastroesophageal reflux disease) (Chronic) Colon polyp (Chronic) Diabetes mellitus type 2 in obese (Chronic) Hospital Course and Treatment Imaging Results: Clinical Impression(s) from Imaging Studies Chest X-Ray 07/24/17 10:08 IMPRESSION: Volume loss of the left hemithorax with increased markings most likely chronic in nature. Clinical correlation is recommended. Electronically Signed: Brian Baker MD at 10:48 EST Tel [phone], Service support , Microbiology 07/24/17 18:55 Sputum, Expectorated/Coughed Gram Stain - Final 07/24/17 18:55 Sputum, Expectorated/Coughed Respiratory Culture - Preliminary Appears to be normal respiratory feroz. Further studies to follow. 07/24/17 14:30 Mucosa - Nasopharyngeal Respiratory Panel (PCR) - Final Influenzae B 07/24/17 18:45 Urine, Clean Catch Streptococcus pneumoniae Antigen (M - Final 07/24/17 18:45 Urine, Clean Catch Legionella Antigen - Final Laboratory Results - last 24 hr 07/25/17 07/25/17 07/26/17 17:07 21:30 06:37 POC Glucose 146 H 143 H 72 07/26/17 11:17 POC Glucose 153 H none Operations: None Procedures: None Summary of Care Provided: The patient is a 72 year old M with a past medical history of obstructive sleep apnea, diabetes mellitus type 2, mitral valve replacement with a mechanical valve in 1996, 3 vessel CABG at the time of his mitral valve replacement, GERD, morbid obesity and a colon polyp who presented to the emergency room complaining of shortness of breath which has been getting progressively worse over the past week. He had a cough productive of thick yellow sputum but he denied any fever/chills/nausea/vomiting/myalgias/ arthralgias. He did not receive a flu shot this year. He does not wear oxygen at home. He has seen Dr. Granger in the past and was told he had scar tissue in his lungs but no COPD and no asthma. He is not on metered-dose inhalers or aerosolized bronchodilators at home. Vital signs at presentation to the emergency room were temp 96.3, pulse rate 94, blood pressure 114/56, respiratory rate 28 and he was 83% saturated on room air. Pulse ox on 2 L nasal cannula was 94-95%. White blood cell count was 10.2 with 74% neutrophils. Hemoglobin was normal at 13.7 and the platelet count was low at 111,000. We have no previous labs on this gentleman. INR was therapeutic at 2.1. An ABG done on a 2 L nasal cannula showed pH of 7.41, PCO2 of 46 and a PO2 of 84. Electrolytes were within normal limits and the serum bicarb was 28. BUN was 43 with a creatinine of 1.59 and once again we have no baseline. He denied any history of renal disease. His random blood sugar was 143. Chest x- ray showed volume loss in the left hemithorax with increased markings which are likely chronic and the patient does give a history of scarring in his lungs. He was given 125 mg of Solu-Medrol in the emergency room and no antibiotic. He was admitted to the hospital with acute asthmatic bronchitis with hypoxemia. He was started on steroids, Mucinex and aerosolized bronchodilators. Supplemental oxygen was supplied. The respiratory panel was positive for influenza B and he was started on Tamiflu. Sputum culture appeared to be normal respiratory feroz. The streptococcal and Legionella antigens in the urine were negative. On 07/26 he was afebrile and the VS were stable. Auscultation of his lungs revealed no rales and he had minimal expiratory wheezing at rest. Pulse ox on room air was 92%. When he ambulated on room air his pulse ox was 85% and he became dyspneic with increased wheezing and cough. He was ambulated on a 2 L nasal cannula and the pulse ox was 92%. Home oxygen was arranged for him and he is to wear it with any exertion at 2 L/min. He will continue to wear CPAP at night and his pulse ox on CPAP is 94-95% with room air. He was given a prescription for Tamiflu to complete 10 doses. He was discharged on prednisone in tapering doses. He will follow-up with Dr. Avalos in 7-10 days. This note was generated with [employer] dictation software. It may contain incorrect words, spelling, and punctuation that were not noted in checking the note before signing. Discharge Activity: - - Avoid exposure to any strong smells such as bleach, cleaning products, strong colognes or perfumes, paint fumes and smoke of any kind. Avoid sudden exposure to cold air because this can cause bronchospasm. You may want to cover your mouth when you go outside in the winter. Avoid exposure to anyone who is sick with a cough or sore throat. Call your doctor if you observe: Fever of 101 or Higher, - - Worsening SOB, chest pain, rash Home Medications: Medications to take at Discharge Acetaminophen [Tylenol] 650 mg PO Q6H PRN PRN 07/24/17 Aspirin [Aspirin, Baby] 81 mg PO DAILY 07/24/17 Atorvastatin Calcium [Lipitor] 40 mg PO QHS 07/24/17 Ezetimibe [Zetia] 10 mg PO DAILY 07/24/17 Furosemide [Lasix] 40 mg PO DAILY 07/24/17 Hydrochlorothiazide [Hctz] 25 mg PO DAILY 07/24/17 Lansoprazole [Prevacid] 15 mg PO DAILY 07/24/17 Lisinopril [Zestril] 40 mg PO DAILY 07/24/17 Metoprolol(XL)Succ [Toprol Xl (Beta Shorty)] 100 mg PO QHS 07/24/17 [place]-3 Fatty Acids [[place]-3] 1,000 mg PO DAILY 07/24/17 Pioglitazone [Actos] 15 mg PO DAILY 07/24/17 Sotalol HCl [Betapace AF (Beta Shorty)] 80 mg PO BID 07/24/17 Warfarin [Coumadin] 5 mg PO SUTUWETHFRSA 07/24/17 Warfarin [Coumadin] 7.5 mg PO MO 07/24/17 Albuterol Aerosols [Ventolin Aerosols] 2.5 mg INHALATION UD #120 vial.neb. 07/26 Guaifenesin [Mucinex] 1,200 mg PO BID #20 tab 07/26/17 Nebulizer [Aeroneb Go Nebulizer] 1 ea MC 4X/DAY #1 ea 07/26/17 Oseltamivir Phosphate [Tamiflu] 30 mg PO BID #7 cap 07/26/17 Prednisone 10 mg PO UD #30 tab 07/26/17 Following Prescrptions Were Given to Patient: Albuterol Aerosols [Ventolin Aerosols] 2.5 mg INHALATION UD #120 vial.neb. Prednisone 10 mg PO UD #30 tab Guaifenesin [Mucinex] 1,200 mg PO BID #20 tab Oseltamivir Phosphate [Tamiflu] 30 mg PO BID #7 cap Nebulizer [Aeroneb Go Nebulizer] 1 ea MC 4X/DAY #1 ea Primary Care Physician: Warren Avalos MD [Primary Care Provider] - Please follow up with your Primary Care Physician in: 7-10 days Patient Instructions: Influenza Disposition: Home Minutes spent on discharge:: 35 Patient Condition:: Stable Meaningful Use Info Meaningful Use Diagnoses (Choose all that apply): None applicable
== END 2017-07-26 15:41 | disposition home or self-care (01) | DRG 153 ==
LOC: ED 12:35 → PCU 13:44 → ED 07-25 15:01 → PCU 07-25 15:01
PROVIDERS: Admitting Provider Internal Medicine; Emergency Provider Emergency Medicine; Family Provider Family Medicine; PCP Family Medicine; Visit Provider Internal Medicine
DX: J11.1 Influenza due to unidentified influenza virus with other respiratory manifestations (principal); D69.6 Thrombocytopenia, unspecified; R06.89 Other abnormalities of breathing; E11.9 Type 2 diabetes mellitus without complications; Z68.42 Body mass index [BMI] 45.0-49.9, adult; E66.01 Morbid (severe) obesity due to excess calories; R09.02 Hypoxemia; J45.909 Unspecified asthma, uncomplicated; G47.33 Obstructive sleep apnea (adult) (pediatric); I25.10 Atherosclerotic heart disease of native coronary artery without angina pectoris; K21.9 Gastro-esophageal reflux disease without esophagitis; E78.5 Hyperlipidemia, unspecified; I10 Essential (primary) hypertension; Z79.82 Long term (current) use of aspirin; Z87.891 Personal history of nicotine dependence; Z95.2 Presence of prosthetic heart valve; Z95.1 Presence of aortocoronary bypass graft; Z79.01 Long term (current) use of anticoagulants; Z86.010 Personal history of colon polyps
CPT/HCPCS: 36415; 36600; 71010; 80048; 80053; 80061; 82803; 82962; 83036; 83735; 83880; 84100; 84484; 85025; 85027; 85610; 87040; 87070; 87077; 87205; 87449; 87633; 93005; 94640; 99285; A4216